=== PATIENT | male | born 1990 | race Caucasian/White ===

== ENCOUNTER 2019-01-23 16:39 | Emergency (ER) | payer OTHER ==
[~2019-01-23] VITALS: Ht 177.8 cm; Wt 83.9 kg
[2019-01-23 16:41] VITALS: Ht 177.8 cm; Wt 83.9 kg
[2019-01-23 17:29] LABS: CALCIUM 9.6 mg/dL (8.5-10.1); CARBON DIOXIDE 26.7 mmol/L (21-32); CHLORIDE SERUM 104 mmol/L (98-107); CREATININE SERUM 1.1 mg/dL (0.7-1.3); GFR1 > 60 mL/min; GLUCOSE SERUM 116 mg/dL (74-106); SODIUM SERUM 140 mmol/L (136-145)
[2019-01-23 17:33] LABS: ALBUMIN 4.2 g/dL (3.4-5.0); ALKALINE PHOSPHATASE 65 U/L (46-116); ALT/SGPT 13 U/L (16-63); AST/SGOT 7 U/L (15-37); BILIRUBIN TOTAL 0.68 mg/dL (0.20-1.00); TOTAL PROTEIN, SERUM 7.5 g/dL (6.4-8.2)
[2019-01-23 17:44] LABS: BASOPHIL % 0.4 % (0-2); PLATELET COUNT 303 x10^3mcL (130-400); RED CELL DISTRIBUTION WIDTH 13.1 % (11.5-14.5)
[2019-01-23 18:52] LABS: AMPHETAMINE QUAL UR NONE DETECTED (See below)
[2019-01-23 20:22] VITALS: BP 136/88
== END 2019-01-23 20:22 | disposition home or self-care (01) ==
LOC: ED 16:39
PROVIDERS: Emergency Medicine
DX: R00.0 Tachycardia, unspecified (principal); K21.9 Gastro-esophageal reflux disease without esophagitis
CPT/HCPCS: 83880; G0480; J2060; Q0092